=== PATIENT | female | born 1970 | race Caucasian/White ===

== ENCOUNTER 2020-12-27 12:18 | Emergency (ER) | payer OTHER | END 2020-12-27 16:12 | disposition home or self-care (01) | LOC: FER 12:18 | DX: S61.052A Open bite of left thumb without damage to nail, initial encounter (principal); S60.811A Abrasion of right wrist, initial encounter; L03.012 Cellulitis of left finger; Z88.0 Allergy status to penicillin; I10 Essential (primary) hypertension; E11.40 Type 2 diabetes mellitus with diabetic neuropathy, unspecified; F32.9 Major depressive disorder, single episode, unspecified; E03.9 Hypothyroidism, unspecified; Z98.890 Other specified postprocedural states; Z23 Encounter for immunization; Z79.84 Long term (current) use of oral hypoglycemic drugs; Z79.899 Other long term (current) drug therapy; W54.0XXA Bitten by dog, initial encounter; Y92.009 Unspecified place in unspecified non-institutional (private) residence as the place of occurrence of the external cause | CPT/HCPCS: 73140; 87070; 87205; 90471; 90715 ==

== ENCOUNTER 2021-03-16 11:17 | Emergency (ER) | payer OTHER ==
[2021-03-16] MEDS ORDERED: MEDROL 4MG DOSEP4 MG PO (14:07)
[2021-03-16] MEDS ORDERED: CYCLOBENZAPRINE10 MG PO (14:07)
== END 2021-03-16 15:15 | disposition home or self-care (01) ==
LOC: FER 11:17
DX: M43.6 Torticollis (principal)
CPT/HCPCS: 72050; 96372; J1885; J2270; J2405